=== PATIENT | female | born 1965 | race American Indian/Alaskan Native ===

== ENCOUNTER 2018-01-30 10:32 | Outpatient (CLI) | payer OTHER ==
--- NOTE | 2018-01-30 11:06 | Mammography Report ---
BILATERAL MAMMOGRAM: FINDINGS: The breast tissue is heterogeneously dense, which could obscure detection of small masses (approximately 50%-75% glandular). No mass, distortion, suspicious calcification, or skin change is seen. No interval change when compared to prior exam in January 2016. CAD was utilized. IMPRESSION: Negative mammogram. There is no mammographic evidence of malignancy. RECOMMENDATION: Follow-up per ACS guidelines. BI-RADS CATEGORY: 1 = Negative ACR BI-RADS MAMMOGRAPHIC CODES: 0 = Needs additional imaging evaluation; 1 = Negative; 2 = Benign; 3 = Probably benign; 4 = Suspicious; 5 = Malignant; 6 = Known biopsy-proven malignancy COMMENT: 1. Dense breast tissue, i.e., adenosis, fibrocystic changes, etc., may obscure an underlying neoplasm. 2. Approximately 10% of cancers are not detected with mammography. 3. A negative mammography report should not delay biopsy if a clinically suspicious mass is present. COMMENT: Patient follow-up letters are generated in [employer].
== END 2018-01-30 10:33 | disposition home or self-care (01) ==
LOC: MAMMO 10:32
PROVIDERS: ATTEND Obstetrics & Gynecology
DX: Z12.31 Encounter for screening mammogram for malignant neoplasm of breast (principal); I10 Essential (primary) hypertension
CPT/HCPCS: 77067

== ENCOUNTER 2019-09-06 05:44 | Day surgery (SDC) | payer OTHER ==
--- NOTE | 2019-08-30 10:44 | Anesthesia Consultation ---
Anesthesia Consult and Med Hx Date of service: 09/06/19 - Airway Anesthetic Teeth Evaluation: Chipped, Caps ROM Head & Neck: Adequate Mental/Hyoid Distance: Adequate Mallampati Class: Class III Intubation Access Assessment: Probably Good - Pre-Operative Health Status ASA Pre-Surgery Classification: ASA2 Proposed Anesthetic Plan: General Nerve Block: TAP - Pulmonary Hx Asthma: No Hx Sleep Apnea: No - Cardiovascular System Hx Hypertension: Yes (x 1 year. States she can climb two flights of stairs) - Central Nervous System Hx Psychiatric Problems: No - Endocrine Hx Non-Insulin Dependent Diabetes: No - Other Systems Hx Cancer: No
[2019-08-30 11:02] LABS: Basophils # (Auto) 0.1 K/mm3 (0.0-0.1); Eosinophils # (Auto) 0.1 K/mm3 (0.0-0.4); Eosinophils % (Auto) 1.4 % (0.0-4.3); Hematocrit 37.6 % (30.3-42.9); Hemoglobin 12.4 gm/dl (10.1-14.3); Lymphocytes # (Auto) 1.7 K/mm3 (1.2-5.4); Lymphocytes % (Auto) 33.3 % (13.4-35.0); Mean Corpuscular HGB Conc 33 % (30-34); Mean Corpuscular Volume 84 fl (79-97); Monocytes # (Auto) 0.3 K/mm3 (0.0-0.8); Monocytes % (Auto) 6.3 % (0.0-7.3); Platelet Count 255 K/mm3 (140-440); Red Blood Count 4.51 M/mm3 (3.65-5.03); Red Cell Distribution Width 18.2 % (13.2-15.2)
[2019-08-30 11:07] LABS: BUN/Creatinine Ratio 20; Blood Urea Nitrogen 20 mg/dL (7-17); Calcium 9.6 mg/dL (8.4-10.2); Hemolysis Index 6
--- NOTE | 2019-09-05 19:10 | History and Physical Report ---
History of Present Illness Date of examination: 08/30/19 History of present illness: Patient has been reassessed/reevaluated. H&P has been reviewed. Patient's preop potassium 2.9 will redraw this am. This is a 54 years old female who presents with uterine fibroids. She complains of abdominal pain, abdominal pressure, pelvic pain, pelvic pressure, menorrhagia and intermenstrual bleeding. Treatment tried to date includes myomectomy. Patient's work up has included an US of pelvis and sonohysterogram.. Patient's symptoms when present disrupts her normal daily activities Patient desires definitive treatment Patient Profile: 54 Years Old Female Height: 65 inches (165.10 cm) Weight: 178 pounds BMI: 29.62 Date of Last Pap Smear: 01/13/2019 Past History : 2 Term Births: 1 Premature Births: 0 Living Children: 1 Para: 1 Mult. Births: 0 Prev : 0 Aborta: 1 Elect. Ab: 0 Spont. 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 Operations: D&C: Myomectomy (03/29/2011) Myosure Myomectomy (03/08/2016) Abnormal PAP: negative Uterine Anomaly: positive fibroids dx 2007 Infection History HIV Risk Eval: no Hx of STD: None Current Allergies (reviewed today): No known allergies Past Medical History: Anemia Blood Transfusions (01/09/2011) x 4 units Blood Transfusions (03/29/2011) Hypertension Past Surgical History: D&C: Myomectomy (03/29/2011) Myosure Myomectomy (03/08/2016) Family History Summary: Family History of Hypertension No Family History of Breast Cancer No Family History of Cervical Cancer No Family History of Colon Cancer No Family History of Diabetes No Family History of Ovarvian Cancer No Family History of DVT/PE on OCP Social History: Patient is Surjit [address] Risk Factors: Smoked Tobacco Use: Never smoker Smokeless Tobacco Use: Never Passive smoke exposure: no Drug use: no HIV high-risk behavior: no Caffeine use: 0 drinks per day Alcohol use: no Exercise: no Seatbelt use: 100 % PAP Smear History: Date of Last PAP Smear: 01/13/2019 Review of Systems General Complains of fatigue. Denies fever, chills, sweats, anorexia, weakness, malaise, weight loss and sleep disorder. Complains of menorrhagia, pelvic pain and painful periods. Denies vaginal discharge, incontinence, dysuria, hematuria, urinary frequency, amenorrhea, abnormal vaginal bleeding, genital sores, decreased libido, painful sex, urinary urgency, hot flashes, vaginal dryness, vaginal itching and vaginal odor. CV Denies chest pains, palpitations, syncope, dyspnea on exertion, orthopnea, PND and peripheral edema. Resp Denies cough, dyspnea at rest, excessive sputum, hemoptysis, wheezing and pleurisy. GI Denies nausea, vomiting, diarrhea, constipation, change in bowel habits, abdominal pain, melena, hematochezia, jaundice, gas/bloating, indigestion/heartburn, dysphagia and odynophagia. Breast Denies left breast lump, right breast lump, nipple discharge, bloody discharge from nipple, breast pain, abnormal mammogram and breast enlargement. Psych Denies depression, anxiety, irritability and mood swings. Past History Past Medical History: hypertension, other (SEE HPI) Past Surgical History: Other (SEE HPI) Social history: full code, other (SEE HPI) Family history: other (SEE HPI) Medications and Allergies Allergies Allergy/AdvReac Type Severity Reaction Status Date / Time No Known Allergies Allergy Unverified 08/30/19 18:43 Home Medications Medication Instructions Recorded Confirmed Last Taken Type Valsartan/Hydrochlorothiazide 1 tab PO DAILY 08/30/19 08/30/19 Unknown History [Valsartan-Hctz 160-25 mg Tab] amLODIPine [Norvasc] 10 mg PO HS 08/30/19 08/30/19 Unknown History Active Meds: Active Medications Cefazolin Sodium (Ancef/Sterile Water 2 Gm/20 Ml) 2 gm in 20 mls @ 80 mls/hr IV PREOP NR; Protocol Stop: 09/06/19 16:00 Review of Systems Constitutional: other (SEE HPI) Exam - Physical Exam Narrative exam: HEENT: normocephalic, no lesions or deformities Skin no ulcers, xanthomas Chest: respiratory effort normal, clear to auscultation CV: regular, normal S1-S2, no murmur, no rub, no gallop Abdomen: normal bowel sounds, soft, nontender, no HSM Well healed pfannenstiel scar Musculoskeletal: grossly normal ROM in joints, no joint tenderness or muscle weakness Neuro: no gross anomalities Extremities: normal alignment, no joint enlargement, crepitus, masses or tenderness; normal tone and strength BASIN FINISH OPERATOR TIG WELDER Exams Vulva/Vagina: normal appearance, no discharge, lesions. No evidence of cystocele or rectocele. Cervix: No lesions; no cervical motion tenderness Uterus: Enlarged uterus 12 to 14 weeks size Adnexae: no masses or tenderness Rectovaginal: Rectal exam deferred due to colonoscopy recently performed or is planned Results - Labs CBC & Chem 7: 08/30/19 10:30 08/30/19 10:30 Assessment and Plan - Patient Problems (1) Intramural leiomyoma of uterus Current Visit: No Status: Acute Plan to address problem: Diagnosis explained to patient . Questions answered. Discussed with patient various medical, surgical and radiological therapies common for treatment including myomectomy hysterectomy and uterine artery embolization Patient's symptoms when present disrupts her normal daily activities. Conservative therapies have failed. Patient desires definitive treatment Patient desires hysterectomy Discussed risks and benefits of laparotomy, laparoscopy, vaginal and robotic assisted approaches for hysterectomies Patient desires robotic assisted total hysterectomy. Patient desires robotic assisted total hysterectomy. Consent reviewed and signed . The risks and alternatives for this surgery were reviewed with the patient. Discuss the risks of the surgery including infection, bleeding possibly heavy enough to require a blood transfusion, possible damage to bowel, bladder or ureter. Patient understand that this surgery with make her sterile.Patient understands if her ovaries are removed she will become menopausal. Patient desires oophorectomy. Also if unable to complete robitcally a laparotomy may be required. Patient advised the small risks of spreading of malignancy if morcellator is used during the surgery patient understands and approve of use if necessary (2) Dysmenorrhea Current Visit: No Status: Acute Plan to address problem: Probably secondary to # 1 (3) Anemia due to chronic blood loss Current Visit: No Status: Chronic Plan to address problem: Probably secondary to # 5 (4) Hypertension Current Visit: No Status: Chronic Qualifiers: Hypertension type: essential hypertension (5) Menometrorrhagia Current Visit: No Status: Acute Plan to address problem: Probably secondary to # 1
[2019-09-06] MEDS ORDERED: ceFAZolin/Water 2 GM/20 ML 2 GM/20 ML SYRINGE IV NR (07:00)
--- NOTE | 2019-09-06 07:20 | Anesthesia Day of Surgery ---
Anesthesia Day of Surgery - Day of Surgery Patient Examined: Yes Patient H&P Reviewed: Yes Patient is NPO: Yes
[2019-09-06] MEDS ORDERED: NEOMY 40 MG/POLYMYXIN B 200,000 UNITS/ML (GU) AMPULE IR ONE (07:23)
[2019-09-06] MEDS ORDERED: SODIUM CHLORIDE 0.9% 250ML 250 ML IV ONE (08:00)
[2019-09-06] MEDS ORDERED: POTASSIUM CHLORIDE 10 MEQ 10 MEQ/100 ML BAG IV ONE (08:00)
[2019-09-06 11:00] VITALS: BP 137/80
== END 2019-09-06 05:45 | disposition home or self-care (01) ==
LOC: OR 05:44
PROVIDERS: ATTEND Obstetrics & Gynecology
DX: D25.9 Leiomyoma of uterus, unspecified (principal); D50.0 Iron deficiency anemia secondary to blood loss (chronic); I10 Essential (primary) hypertension; Z53.9 Procedure and treatment not carried out, unspecified reason; Z98.890 Other specified postprocedural states; Z79.899 Other long term (current) drug therapy; Z68.33 Body mass index [BMI] 33.0-33.9, adult; Z90.710 Acquired absence of both cervix and uterus
CPT/HCPCS: 36415; 80048; 81025; 84132; 85025; 86850; 86900; 86901; J3480; J7050

== ENCOUNTER 2019-09-10 09:39 | Observation (INO) | payer OTHER ==
--- NOTE | 2019-09-09 16:58 | History and Physical Report ---
History of Present Illness History of present illness: Patient has been reassessed/reevaluated. H&P has been reviewed. Patient's 09/06/2019 surgery case was cancelled due to preop potassium level of 2.9 Patient reiceived supplementation redraw this am is 3.7. This is a 54 years old female who presents with uterine fibroids. She complains of abdominal pain, abdominal pressure, pelvic pain, pelvic pressure, menorrhagia and intermenstrual bleeding. Treatment tried to date includes myomectomy. Patient's work up has included an US of pelvis and sonohysterogram.. Patient's symptoms when present disrupts her normal daily activities Patient desires definitive treatment Patient Profile: 54 Years Old Female Height: 65 inches (165.10 cm) Weight: 178 pounds BMI: 29.62 Date of Last Pap Smear: 01/13/2019 Past History : 2 Term Births: 1 Premature Births: 0 Living Children: 1 Para: 1 Mult. Births: 0 Prev : 0 Aborta: 1 Elect. Ab: 0 Spont. Ab: 1 Ectopics: 0 TELETYPEWRITER OPERATOR History Operations: D&C: Myomectomy (03/29/2011) Myosure Myomectomy (03/08/2016) Abnormal PAP: negative Uterine Anomaly: positive fibroids dx 2007 Infection History HIV Risk Eval: no Hx of STD: None Current Allergies (reviewed today): No known allergies Past Medical History: Anemia Blood Transfusions (01/09/2011) x 4 units Blood Transfusions (03/29/2011) Hypertension Past Surgical History: D&C: Myomectomy (03/29/2011) Myosure Myomectomy (03/08/2016) Family History Summary: Family History of Hypertension No Family History of Breast Cancer No Family History of Cervical Cancer No Family History of Colon Cancer No Family History of Diabetes No Family History of Ovarvian Cancer No Family History of DVT/PE on OCP Social History: Patient is Surjit [place] Risk Factors: Smoked Tobacco Use: Never smoker Smokeless Tobacco Use: Never Passive smoke exposure: no Drug use: no HIV high-risk behavior: no Caffeine use: 0 drinks per day Alcohol use: no Exercise: no Seatbelt use: 100 % PAP Smear History: Date of Last PAP Smear: 01/13/2019 Review of Systems General Complains of fatigue. Denies fever, chills, sweats, anorexia, weakness, malaise, weight loss and sleep disorder. Complains of menorrhagia, pelvic pain and painful periods. Denies vaginal discharge, incontinence, dysuria, hematuria, urinary frequency, amenorrhea, abnormal vaginal bleeding, genital sores, decreased libido, painful sex, urinary urgency, hot flashes, vaginal dryness, vaginal itching and vaginal odor. CV Denies chest pains, palpitations, syncope, dyspnea on exertion, orthopnea, PND and peripheral edema. Resp Denies cough, dyspnea at rest, excessive sputum, hemoptysis, wheezing and pleurisy. GI Denies nausea, vomiting, diarrhea, constipation, change in bowel habits, abdominal pain, melena, hematochezia, jaundice, gas/bloating, indigestion/heartburn, dysphagia and odynophagia. Breast Denies left breast lump, right breast lump, nipple discharge, bloody disch arge from nipple, breast pain, abnormal mammogram and breast enlargement. Psych Denies depression, anxiety, irritability and mood swings. Past History Past Medical History: other (SEE HPI) Past Surgical History: Other (SEE HPI) Social history: full code, other (SEE HPI) Family history: other (SEE HPI) Medications and Allergies Allergies Allergy/AdvReac Type Severity Reaction Status Date / Time No Known Allergies Allergy Unverified 09/06/19 15:54 Home Medications Medication Instructions Recorded Confirmed Last Taken Type Valsartan/Hydrochlorothiazide 1 tab PO DAILY 08/30/19 09/10/19 09/09/19 19:00 History [Valsartan-Hctz 160-25 mg Tab] amLODIPine [Norvasc] 10 mg PO HS 08/30/19 09/10/19 09/09/19 19:00 History Review of Systems Constitutional: other (SEE HPI) Exam - Physical Exam Narrative exam: HEENT: normocephalic, no lesions or deformities Skin no ulcers, xanthomas Chest: respiratory effort normal, clear to auscultation CV: regular, normal S1-S2, no murmur, no rub, no gallop Abdomen: normal bowel sounds, soft, nontender, no HSM Well healed pfannenstiel scar Musculoskeletal: grossly normal ROM in joints, no joint tenderness or muscle weakness Neuro: no gross anomalities Extremities: normal alignment, no joint enlargement, crepitus, masses or t enderness; 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 No evidence of cystocele or rectocele. Cervix: No lesions; no cervical motion tenderness Uterus: Enlarged uterus 12 to 14 weeks size Adnexae: no masses or tenderness Rectovaginal: Rectal exam deferred due to colonoscopy recently performed or is planned Results - Labs CBC & Chem 7: 09/10/19 10:16 Assessment and Plan - Patient Problems (1) Dysmenorrhea Current Visit: No Status: Acute Plan to address problem: Probably secondary to # 2 (2) Intramural leiomyoma of uterus Current Visit: No Status: Acute Plan to address problem: Diagnosis explained to patient . Questions answered. Discussed with patient various medical, surgical and radiological therapies common for treatment including myomectomy hysterectomy and uterine artery embolization Patient's symptoms when present disrupts her normal daily activities. Conservative therapies have failed. Patient desires definitive treatment Patient desires hysterectomy Discussed risks and benefits of laparotomy, laparoscopy, vaginal and robotic assisted approaches for hysterectomies Patient desires robotic assisted total hysterectomy. Patient desires robotic assisted total hysterectomy. Consent reviewed and signed . The risks and alternatives for this surgery were reviewed with the patient. Discuss the risks of the surgery including infection, bleeding possibly heavy enough to require a blood transfusion, possible damage to bowel, bladder or ureter. Patient understand that this surgery with make her sterile.Patient understands if her ovaries are removed she will become menopausal. Patient desires oophorectomy. Also if unable to complete robitcally a laparotomy may be required. Patient advised the small risks of spreading of malignancy if morcellator is used during the surgery patient understands and approve of use if necessary (3) Menometrorrhagia Current Visit: No Status: Acute Plan to address problem: Probably secondary to # 2 (4) Anemia due to chronic blood loss Current Visit: No Status: Chronic Plan to address problem: Probably secondary to # 3 (5) Hypertension Current Visit: No Status: Chronic Qualifiers: Hypertension type: essential hypertension Qualified Code(s): I10 - Essential (primary) hypertension (6) Hypokalemia Current Visit: No Status: Acute Plan to address problem: Probably secondary to medications for # 5 (7) Body mass index 33.0-33.9, adult Current Visit: No Status: Acute
[2019-09-10] MEDS ORDERED: ceFAZolin/Water 2 GM/20 ML 2 GM/20 ML SYRINGE IV NR (10:00)
[2019-09-10 10:48] LABS: BUN/Creatinine Ratio 11; Blood Urea Nitrogen 12 mg/dL (7-17); Calcium 9.9 mg/dL (8.4-10.2); Hemolysis Index 4
--- NOTE | 2019-09-10 11:09 | Anesthesia Consultation ---
Anesthesia Consult and Med Hx Date of service: 09/10/19 - Airway Anesthetic Teeth Evaluation: Chipped, Caps ROM Head & Neck: Adequate Mental/Hyoid Distance: Adequate Mallampati Class: Class III Intubation Access Assessment: Probably Good - Pulmonary Exam CTA: Yes - Cardiac Exam Cardiac Exam: RRR - Pre-Operative Health Status ASA Pre-Surgery Classification: ASA2 Proposed Anesthetic Plan: General Nerve Block: TAP - Pulmonary Hx Asthma: No Hx Sleep Apnea: No - Cardiovascular System Hx Hypertension: Yes (x 1 year. States she can climb two flights of stairs) - Central Nervous System Hx Psychiatric Problems: No - Endocrine Hx Non-Insulin Dependent Diabetes: No - Hematic Hx Anemia: Yes - Other Systems Hx Cancer: No
--- NOTE | 2019-09-10 11:09 | Anesthesia Day of Surgery ---
Anesthesia Day of Surgery - Day of Surgery Patient Examined: Yes Patient H&P Reviewed: Yes Patient is NPO: Yes
[2019-09-10] MEDS ORDERED: GABAPENTIN 300 MG CAP ONE (11:12)
[2019-09-10] MEDS ORDERED: CELECOXIB 200 MG CAP ONE (11:12)
[2019-09-10] MEDS ORDERED: ACETAMINOPHEN 325 MG TAB ONE (11:13)
[2019-09-10] MEDS ORDERED: fentaNYL 100 MCG/2 ML INJ ONE ×3 (11:13→14:38)
[2019-09-10] MEDS ORDERED: MIDAZOLAM 2 MG/2 ML INJ ONE (11:13)
[2019-09-10] MEDS ORDERED: LACTATED RINGERS 1,000 ML ONE (11:14)
[2019-09-10] MEDS ORDERED: LIDOCAINE (1%) 10 MG/1 ML VIAL 20 ML MDV ONE (11:16)
[2019-09-10] MEDS ORDERED: BUPIVACAINE-EPINEPHRINE/PF 0.5%-1:200,000 (30 ML) VIAL INFILTRATI ONE (11:16)
[2019-09-10] MEDS ORDERED: NEOMY 40 MG/POLYMYXIN B 200,000 UNITS/ML (GU) AMPULE IR ONE ×2 (11:24→13:01)
[2019-09-10] MEDS ORDERED: LACTATED RINGERS 1,000 ML IV SCH (11:45)
[2019-09-10] MEDS ORDERED: fentaNYL 100 MCG/2 ML INJ IV ONE (11:47)
[2019-09-10] MEDS ORDERED: ACETAMINOPHEN 325 MG TAB PO ONE (11:47)
[2019-09-10] MEDS ORDERED: GABAPENTIN 300 MG CAP PO NR (12:00)
[2019-09-10] MEDS ORDERED: MIDAZOLAM 2 MG/2 ML INJ IV NR (12:00)
[2019-09-10] MEDS ORDERED: CELECOXIB 200 MG CAP PO NR (12:00)
[2019-09-10] MEDS ORDERED: ONDANSETRON 4 MG/2 ML INJ ONE ×2 (12:04→16:37)
[2019-09-10] MEDS ORDERED: ROCURONIUM 50 MG/5 ML INJ IV ONE (12:04)
[2019-09-10] MEDS ORDERED: GLYCOPYRROLATE 0.4 MG/2 ML INJ ONE (12:04)
[2019-09-10] MEDS ORDERED: LIDOCAINE MPF (2%) 20 MG/1 ML VIAL 5 ML ONE (12:04)
[2019-09-10] MEDS ORDERED: NEOSTIGMINE 10MG/10 ML INJ MDV ONE (12:04)
[2019-09-10] MEDS ORDERED: dexAMETHasone 20 MG/5 ML VIAL ONE (12:04)
[2019-09-10] MEDS ORDERED: PROPOFOL 200 MG/20 ML VIAL IV ONE (12:05)
[2019-09-10] MEDS ORDERED: SODIUM CHLORIDE 0.9% IRR 1,000 ML BOTTLE IR ONE (13:01)
[2019-09-10] MEDS ORDERED: SODIUM CHLORIDE 0.9% IRRIG SOLN 2000 ML IR ONE (13:01)
[2019-09-10] MEDS ORDERED: SODIUM CHLORIDE 0.9% 1000 ML 1,000 ML ONE (13:14)
[2019-09-10] MEDS ORDERED: METHYLENE BLUE 50 MG/10 ML AMP ONE (13:15)
[2019-09-10] MEDS ORDERED: METHYLENE BLUE 50 MG/10 ML AMP IV ONE (13:23)
--- NOTE | 2019-09-10 14:52 | Post Operative Note ---
Pre-op diagnosis: symptomatic leiomyomas Post-op diagnosis: same Findings: 16-18 week uterus with Right ovarian cyst and large left tuabal cyst Procedure: RATH w/ BSO and MARYLIN Anesthesia: GETA Surgeon: KEEGAN FERREIRA Estimated blood loss: 50-100ml Pathology: list Specimen disposition: to lab Condition: stable Disposition: PACU
--- NOTE | 2019-09-10 14:52 | Operative Report ---
Operative Report Operative Report: Operative Report: Date of procedure: 09/10/2019 Pre-operative diagnosis: Symptomatic leiomyomata Post-operative diagnosis: Same plus pelvic adhesive disease Procedure name(s): Robotic assisted total hysterectomy with bilateral salpingo- oophorectomy with lysis of adhesions Surgeon: Reynaldo Nguyen MD Lime Slaker: Jerica Velazco, certified ophthalmic medical technician Anesthesia: General EBL: 100 mL Complications: None Findings: Uterus approximately 16 to 18 weeks in size with adhesions of the posterior uterine wall and intestines and anterior uterine wall and anterior abdominal wall and bladder. Right ovarian cysts with normal. Left tubal cysts with a normal left ovary. Specimen(s): Uterus including cervix was bilateral adnexa Procedure: Patient was brought to the operating room where general anesthesia was induced without difficulty. Patient was placed in the dorsal lithotomy position. Prepped and draped in the usual sterile manner for robotic procedure. Bourne catheter was placed without difficulty. Speculum was placed in the vagina. A large V-Care Uterine manipulator was placed without difficulty. Attention was now switched to the patient's abdomen. A vertical supra-umbilicus incision was made with a scalpel. A 10-12 trocar was placed in this incision under direct visualization. Intra-abdominal placement was verified with no evidence of internal organ damage. The patient pelvic findings were noted as above. It was determined that the patient was a candidate for robotic procedure. On both sides the umbilical incision at 8 cm, incisions were made for robotic trocar. Each robotic trocar was placed under direct visualization with no evidence of internal organ damage. One bindery library technical assistant ports were then placed. One 8-10 trocar was placed 2 fingerbreadths above the right iliac crest. At this time the patient was placed in extreme Trendelenburg. The da Hilario robot was then docked on the patient's left side. At this time I took my place under the robotic operating lim. The adhesions both anteriorly and posterior uterus were taken down sharply and bluntly with the robotic instruments. Starting on the patient's right side the right ureter was seen out of the operative field. Methylene Blue was given intravenously in order to indicate in the damage or urinary system. The ovarian vessels were clearly seen cauterize and cut with the robotic scissors. The meso salpinx were cauterized and cut reaching to the round ligament. The round ligament was cauterized and cut. The leaves of the broad ligament on that side was anteriorly and posteriorly. The anterior leaves were use to form a bladder flap anteriorly the posterior leaf was cut exposing the uterine vessels on that side. The uterine vessels were cauterized and cut the bladder flap was more clearly made. Attention was then switched to the patient's left side. Where the ureter was again identified and cleared out of the field. The same procedure was cauterized and cut and the ovarian vessels and receiving with some incising the round ligament broad the broad ligament then cauterized and cut and the uterine vessels were performed.. At this time the uterus was appearing very cyanotic. After inspecting the bladder flap insured no evidence of bladder injury, the colpotomy was then started. Incision started at 6:00 until the V-Care could be seen. This incision was extended from 6:00 to 9:00. Then from 6:00 to 3:00. Then from 9:00 to 12:00. This incision was extended from 3:00 to 12:00. At this time colpotomy was complete with no evidence of adjacent organ damage. The bindery library technical assistant remove the uterus from through the colpotomy site. The vaginal cuff was irrigated and cauterized and found to be hemostatic. The cuff was closed with roboticly using 0 V- Lock suture. This closure was hemostatic after irrigation and Bovie. All pedicles were inspected and found to be hemostatic. The ureters were identified bilaterally and found to be functioning normal. No evidence of spillage of methylene blue intra-abdominally. The Bourne bag had clear urine. Michael is placed across the vaginal cuff. All instruments were then removed. The large trocar sites were closed in layers and 4-0 Vicryl. The smaller incisions were closed subcuticularly with 4-0 Vicryl. The patient tolerated procedure well. She was awakened in the operating room and accompanied to the recovery room in good condition.
[2019-09-10] MEDS ORDERED: hydrALAZINE 20 MG/1 ML INJ IV PRN (15:54)
[2019-09-10] MEDS ORDERED: ONDANSETRON 4 MG/2 ML INJ IV ONE (16:39)
--- NOTE | 2019-09-10 16:48 | Post Anesthesia Evaluation ---
- Post Anesthesia Evaluation Patient Participated: Yes Airway Patent: Yes Stable Respiratory Function: Yes Nausea/Vomiting: No Temp > 96.8F: Yes Pain Manageable: Yes Adequeate Hydration: Yes Anesthesia Complications: No Block Receding Appropriately: Yes Patient on Ventilator: No
[2019-09-10] MEDS ORDERED: ESTRADIOL 0.1 MG/24 HR PATCH WEEKLY TD SCH (17:56)
[2019-09-10] MEDS ORDERED: MAGNESIUM HYDROXIDE (MOM) ORAL LIQD UDC PO PRN (17:56)
[2019-09-10] MEDS ORDERED: HYDROcodone/ACETAMINOPHEN 5-325 MG TAB PO PRN (17:56)
[2019-09-10] MEDS ORDERED: ACETAMINOPHEN 325 MG TAB PO PRN (17:56)
[2019-09-10] MEDS ORDERED: D5W/LACTATED RINGERS 1,000 ML IV SCH (17:56)
--- NOTE | 2019-09-10 18:15 | Event Note ---
Date: 09/10/19 Patient asleep in room. Without labor breathing. Elevated blood pressures PACU noted. We'll continue to monitor will allow patient to continue to rest.
[2019-09-10] MEDS: KETOROLAC 30 MG/1 ML INJ IV SCH ×2 (18:54→23:07)
[2019-09-10] MEDS: ceFAZolin/NS 1 GM/50 ML 1 GM/50 ML BAG IV SCH (20:19)
[2019-09-10] MEDS ORDERED: amLODIPine 10 MG TAB PO SCH (22:00)
[2019-09-10] MEDS: DOCUSATE SODIUM 100 MG CAP PO SCH (22:23)
[2019-09-11] MEDS: ceFAZolin/NS 1 GM/50 ML 1 GM/50 ML BAG IV SCH (02:07)
[2019-09-11 04:45] LABS: Hemoglobin 11.5 gm/dl (10.1-14.3)
[2019-09-11] MEDS: KETOROLAC 30 MG/1 ML INJ IV SCH (05:45)
[2019-09-11] MEDS ORDERED: IBUPROFEN 800 MG TAB PO PRN (06:00)
[2019-09-11] MEDS: DOCUSATE SODIUM 100 MG CAP PO SCH (09:35)
--- NOTE | 2019-09-11 12:33 | Discharge Summary ---
Providers - Providers Date of Admission: 09/10/19 14:54 Date of discharge: 09/11/19 Attending physician: KEEGAN FERREIRA Primary care physician: TONY REINOSO Hospitalization Reason for admission: other (RATH with BSO) Procedure: other (see above) Procedure details: see op note Incision: normal, dry, intact Hospital course: Pt s/p above stated procedure. She had routine post op care that was not complicated. She is being d/c home on POD#1 Condition at discharge: Good Disposition: DC-01 TO HOME OR SELFCARE Plan - Discharge Medications Prescriptions: Estradiol [Estradiol 0.075mg/24hr] 1 each TD 2XW #8 patch.tdsw Ferrous Sulfate [Feosol 325 MG tab] 325 mg PO BID #60 tablet Ibuprofen [Motrin 800 MG tab] 800 mg PO Q6H PRN #30 tablet PRN Reason: Pain oxyCODONE /ACETAMINOPHEN [Percocet 5/325 mg] 1 - 2 tab PO Q4H PRN #30 tablet PRN Reason: Pain, Moderate oxyCODONE /ACETAMINOPHEN [Percocet 5/325] 1 tab PO Q4HR #30 tab - Provider Discharge Summary Activity: routine, no sex for 6 weeks, no heavy lifting 4 weeks Additional instructions: [] Smoking cessation referral if applicable(refer to patient education folder for contact #) [] Refer to [facility]'s [facility] Booklet Call your doctor immediately for: * Fever > 100.5 * Heavy vaginal bleeding ( >1 pad per hour) * Severe persistent headache * Shortness of breath * Reddened, hot, painful area to leg or breast * Drainage or odor from incision. * Keep incision clean and dry at all times and follow doctor's instructions regarding bathing/showering - Follow up plan Follow up: TONY REINOSO MD [Primary Care Provider] - 7 Days KEEGAN FERREIRA MD [Staff Physician] - 7 Days
--- NOTE | 2019-09-11 12:33 | Progress Note ---
Assessment and Plan - Patient Problems (1) History of robot-assisted laparoscopic hysterectomy Current Visit: Yes Status: Acute Plan to address problem: -routine post op care -d/c home today Subjective - Subjective Date of service: 09/11/19 Principal diagnosis: POD #1 s/p RATH with BSO Interval history: Pt doing well and desires d/c home today. She never got the estrogen patch but does not c/o having any hotflushes at this time. I advised pt that she can choose to have it palced or that she can she how she feels and re-evaluate when she sees Dr. Nguyen in the office at her post op visit. She expressed understanding and agrees with plan of care. Patient reports: appetite normal, voiding normally, pain well controlled, no dizzy ambulation Objective - Vital Signs Latest vital signs: Vital Signs Temp Pulse Resp BP BP Pulse Ox 09/11/19 07:39 97.6 F 79 18 136/66 97 09/11/19 05:40 98.4 F 99 H 20 133/84 97 09/11/19 00:30 98.3 F 102 H 20 158/64 100 09/10/19 22:24 91 H 130/69 09/10/19 22:00 18 09/10/19 20:24 97.8 F 91 H 18 130/69 99 09/10/19 18:45 87 18 134/79 100 09/10/19 17:20 97 H 157/97 09/10/19 17:15 97.6 F 113 H 20 174/104 100 09/10/19 16:50 97.7 F 86 19 146/78 97 09/10/19 16:35 87 20 152/81 98 09/10/19 16:20 86 19 140/70 98 09/10/19 16:05 97.4 F L 86 20 165/96 98 09/10/19 15:59 78 180/99 09/10/19 15:50 73 20 180/104 97 09/10/19 15:35 76 20 182/99 97 09/10/19 15:20 82 19 167/97 96 09/10/19 15:15 69 18 151/89 98 09/10/19 15:10 70 18 163/88 97 09/10/19 15:06 97.1 F L 60 20 164/83 88 Intake and Output 09/10/19 09/11/19 09/11/19 22:59 06:59 14:59 Intake Total 550 400 Output Total 1300 100 Balance -750 300 Intake: IV 450 ANCEF/NS 1 GM/50 ML 1 gm 50 In 50 ml @ 100 mls/hr IV Q8H [facility] Rx#:[id number] Oral 400 Intake, Free Water 100 Output: Urine 1300 100 Indwelling Catheter 1000 Void 100 Other: Total, Intake Amount 400 Total, Output Amount 1000 100 Voiding Method Indwelling Catheter # Voids Void 1 - Exam Cardiovascular: Present: Normal S1, Normal S2 Lungs: Present: Clear to auscultation, Normal air movement Abdomen: Present: normal appearance, soft. Absent: distention, tenderness, guarding Uterus: Present: other (abscent) Extremities: Present: normal. Absent: tenderness, edema Deep Tendon Reflex Grade: Normal +2 Incision: Present: normal, dry, intact
[2019-09-11 13:53] VITALS: BP 124/50
[2019-09-11] MEDS ORDERED: ESTRADIOL 0.1 MG/24 HR PATCH WEEKLY TD SCH (14:00)
== END 2019-09-11 15:00 | disposition home or self-care (01) ==
LOC: OR 09:39 → OB 14:54
PROVIDERS: ADMIT Obstetrics & Gynecology; ATTEND Obstetrics & Gynecology
DX: D25.1 Intramural leiomyoma of uterus (principal); I10 Essential (primary) hypertension; N92.1 Excessive and frequent menstruation with irregular cycle; D50.0 Iron deficiency anemia secondary to blood loss (chronic); N94.6 Dysmenorrhea, unspecified; E87.6 Hypokalemia; Z79.899 Other long term (current) drug therapy
CPT/HCPCS: 36415; 58573; 64450; 80048; 85014; 85018; 86850; 86900; 86901; 88307; 96365; 96366; 96375; 96376; A4217; G0378; J0360; J0690; J1100; J1885; J2250; J2405; J2704; J2710; J3010; J7120; J7121; Q9968; S2900; J7030

== ENCOUNTER 2021-11-30 08:28 | Outpatient (CLI) | payer OTHER ==
--- NOTE | 2021-11-30 09:21 | Mammography Report ---
DIGITAL SCREENING MAMMOGRAM WITH CAD, 11/30/2021 CLINICAL INFORMATION / INDICATION: Routine screening mammography. SCREENING MAMMOGRAM TECHNIQUE: Digital bilateral 2D mammography was obtained in the craniocaudal and mediolateral obliqu e projections. This examination was interpreted with the benefit of Computer-Aided Detection analysis . COMPARISON: 07/07/2019 and 01/30/2018 FINDINGS: Breast Density: There are scattered areas of fibroglandular density. No dominant mass, suspicious calcifications, or architectural distortion in either breast. Largely unchanged nodular densities in the breasts, commonly fibroglandular or fibrocystic change. IMPRESSION: No mammographic evidence of malignancy. Follow up recommendation: Routine yearly BI-RADS Category 2: BENIGN. A "normal" or negative report should not discourage follow up or biopsy of a clinically significant f inding. A written summary of these findings will be mailed to the patient. The patient will be entered into a mammography reporting system which will generate a reminder letter for the patient's next appointmen t at the appropriate interval. The [employer] recommends yearly mammograms starting at age 40 and continuing as l suki as a woman is in good health. Breast MRI is recommended for women with an approximate 20-25% or greater lifetime risk of breast cancer, including women with a strong family history of breast or ova diana cancer or who have been treated for Hodgkin's disease. Signer Name: Jimenez Gillis MD Signed: 11/30/2021 9:16 AM Workstation Name: [id number]
== END 2021-11-30 08:29 | disposition home or self-care (01) ==
LOC: MAMMO 08:28
PROVIDERS: ATTEND Obstetrics & Gynecology
DX: Z12.31 Encounter for screening mammogram for malignant neoplasm of breast (principal)
CPT/HCPCS: 77067